=== PATIENT | female | born 1990 | race Caucasian/White ===

== ENCOUNTER 2016-08-16 06:43 | Inpatient (IN) | payer MEDICAID ==
[~2016-08-16] VITALS: Ht 154.9 cm; Wt 69.9 kg
--- NOTE | ~2016-08-16 | HP ---
ADMIT: 08/16/2016 RM/LOC: 229 [facility] MR#: [id number] [address] [address] STELLA CAMPBELL KENDRA A [address] [place] [address] History and Physical SEX: F AGE: 26 : 1990 DATE OF SERVICE: CHIEF COMPLAINT: Uterine contractions. HISTORY OF PRESENT ILLNESS: This is a 26-year-old female, 3, para 1-0- 1-1, who [facility] with an intrauterine at 39- 4/7th weeks' gestation with complaints of uterine contractions increasing in frequency and intensity. Her estimated date of confinement is based off a 9 week ultrasound. Her has been complicated only by history of a spontaneous . At the time of initial evaluation, she was noted to be inocencio regularly and 5 cm dilated. She is therefore admitted for labor. LABORATORY DATA: Blood type is A positive. Antibody screen negative, HIV negative, rubella positive, RPR nonreactive, hepatitis B surface antigen negative, gonorrhea and chlamydia negative. Quad screen normal. Diabetic screen 90. Group B strep is negative. PAST MEDICAL HISTORY: She denies hypertension, diabetes, asthma, kidney, or thyroid disease. PAST SURGICAL HISTORY: None. SOCIAL HISTORY: She is not . The father of the baby is involved. She denies tobacco, alcohol, or drug use. ALLERGIES: NO KNOWN DRUG ALLERGIES. CURRENT MEDICATIONS: vitamins. PHYSICAL EXAMINATION: VITAL SIGNS: Temperature 98.1, blood pressure 120/66, pulse 82, respirations 18. GENERAL: This is a pleasant female, in no acute distress. HEENT. Head is normocephalic and atraumatic. Pupils are equal, round, react to light and accommodation. Extraocular muscles are intact. NECK: Supple. HEART: Regular rate and rhythm. LUNGS: Clear bilaterally. ADMIT: 08/16/2016 RM/LOC: 229 [facility] MR#: [id number] [address] [address] KENDRA JAIMES [address] [place] [address] History and Physical SEX: F AGE: 26 : 1990 ABDOMEN: Soft, nontender, and nondistended. Gravid. EXTREMITIES: Nontender. 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 Decelerations are absent. Uterine contractions every 2 to 3 minutes. Her cervix is 5 cm, 90% effaced, 0 station. Fetus is vertex. Estimated weight is 7 pounds. IMPRESSION: This is a 26-year-old female, 3, para 1-0-1-1, with an intrauterine at 39-4/7th weeks' gestation in active labor. PLAN: At this time, we will admit the patient, treat her pain as she desires, augment if needed, and anticipate a spontaneous vaginal delivery. Eve Avila MD/ lorna JOB #: [id number] CC: Eve Avila, Attending Physician Eve Avila, Family Physician
--- NOTE | ~2016-08-16 | FD ---
ADMIT: 08/16/2016 RM/LOC: 229 [facility] MR#: [id number] [id number] [facility] [address] KENDRA JAIMES [address] [place] [address] Final Diagnosis SEX: F AGE: 26 : 1990 ADMISSION DATE: 08/16/2016 DISCHARGE DATE: 08/18/2016 FINAL DIAGNOSIS: Status post spontaneous vaginal delivery at term. PROCEDURE: 08/16/2016 spontaneous vaginal delivery with delivery of viable male, 6 pounds 14 ounces, Apgars 9 and 9. Eve Avila MD/ williams JOB #: [id number] CC: Eve Avila MD, Attending Physician Eve Avila MD, Family Physician
[2016-08-18] MEDS ORDERED: UNISOM25 MG PO (18:44)
[2016-08-18] MEDS ORDERED: PRENATAL VIT1 TAB PO (18:44)
[2016-08-18] MEDS ORDERED: COLACE-DPS100 MG PO (18:45)
[2016-08-18] MEDS ORDERED: TYLENOL #3 DPS1 TAB PO (18:45)
[2016-08-18] MEDS ORDERED: MOTRIN-DPS800 MG PO (18:45)
--- NOTE | 2016-08-26 01:07 | OR ---
ADMIT: 08/16/2016 RM/LOC: 229 [facility] MR#: [id number] [address] [address] FIONA KENDRA Parr [address] [place] [id number] Operative/Delivery Room Report SEX: F AGE: 26 : 1990 SURGERY DATE: 08/16/2016 SURGEON: Eve Avila MD PREOP DIAGNOSES: 1. Intrauterine at 39 weeks and 4 days gestation who presented for active labor and contractions. 2. Group B Streptococcus negative. POSTOP DIAGNOSES: 1. Intrauterine at 39 weeks and 4 days gestation who presented for active labor and contractions. 2. Group B Streptococcus negative. FINDINGS: Viable male , born at 11:04 a.m. The baby weighed 6 pounds 14 ounces. scores of 9 and 9. PROCEDURE: Spontaneous vaginal delivery with repair of second-degree laceration. ANESTHESIA: Epidural. COMPLICATIONS: None. ESTIMATED BLOOD LOSS: 200 mL. INDICATIONS FOR PROCEDURE: The patient is a 26-year-old, G3, P1-0-1-1 at 39 weeks and 4 days. The patient was found to be complete and pushing bringing the baby's vertex to the perineum. DESCRIPTION OF PROCEDURE: The patient was complete and pushing and bringing ADMIT: 08/16/2016 RM/LOC: 229 [facility] MR#: [id number] [address] [place] [id number] KENDRA JAIMES [address] [place] [id number] Operative/Delivery Room Report SEX: F AGE: 26 : 1990 baby's vertex to the perineum. With a push, the vertex was delivered in the HETAL position. With another push, anterior shoulder delivered without difficulty. Posterior shoulder and body followed as well. Delayed cord clamping was performed. The cord was clamped and cut and found to be a 3- vessel cord. The baby was then placed on mother's abdomen. Cord blood was drawn. Placenta was delivered spontaneously intact. The cervix was checked for lacerations and found to be free of lacerations. The vaginal wall and perineum were also examined and was found to have a second degree midline laceration that required repair. Repair was done in the usual fashion with excellent hemostasis. Needle count and sponge count were correct. The patient and baby recovered in the patient's room in stable condition. Dr. Avila was present and participated in all aspects of this delivery. Martha Gary MD Resident / Eve Avila MD / lorna JOB #: [id number] CC: Eve Avila, Attending Physician Eve Avila, Family Physician
== END 2016-08-18 14:20 | disposition home or self-care (01) | DRG 775 ==
LOC: 2LDRP 06:43 → BC 06:43 → 2LDRP 07:11 → BC 07:11 → 2LDRP 07:22 → BC 08-19 08:00
PROVIDERS: ADMIT Obstetrics & Gynecology
PROC: 10E0XZZ Delivery of Products of Conception, External Approach (ICD-10-PCS; principal; 2016-08-16)
DX: O70.1 Second degree perineal laceration during delivery (principal); Z37.0 Single live birth; Z3A.39 39 weeks gestation of pregnancy